=== PATIENT | male | born 1935 | race Caucasian/White ===

== ENCOUNTER 2016-05-07 18:04 | Observation (INO) ==
[2016-05-07] MEDS ORDERED: *HR* OxyCODONE/APAP 5/325 TABLET PO ONE (18:22)
[2016-05-07] MEDS ORDERED: Ondansetron ODT 4 MG TAB.RAPDIS SL ONE (18:22)
--- NOTE | 2016-05-07 18:39 | Emergency Department Note ---
Disposition Clinical Impression: Intractable pain, HX: anticoagulation Rectus sheath hematoma Qualifiers: Encounter type: initial encounter Qualified Code(s): S30.1XXA - Contusion of abdominal wall, initial encounter Anemia Qualifiers: Anemia type: unspecified type Qualified Code(s): D64.9 - Anemia, unspecified Disposition: Admitted As Inpatient Condition: Good Abdominal Pain HPI - General Chief Complaint: ED Extremity Injury, Lower Stated Complaint: Pulled something in RLQ Time Seen by Provider: 05/07/16 18:17 Source: patient, family, EMS Mode of arrival: EMS Limitations: no limitations Nursing Notes Reviewed: Yes Vital Signs Reviewed: Yes - History of Present Illness HPI Narrative: The patient reports that he awoke this morning and lifted his left leg up to twist to his right side to get out of bed. He states with this he had acute onset of pain and burning in his right lower quadrant. He had been ambulatory through the course of the day but has had increased pain prompting the family to call the squad for his evaluation. The pain is still in the right lower quadrant but he states it is now less associated with motion. He has had tenderness to right lower quadrant. He denies any feeling of swelling or fullness in the area. He denies radiation to the flank. This is similar in degree of pain to her previous kidney stone but he believes the pain is different. He denies nausea, vomiting, diarrhea or urinary troubles. He denies weakness or dizziness, fevers or chills. He denies radiation of pain down the leg or lower extremity numbness, tingling or weakness. He denies any midline back pain. He has not had any recent change in activity, strain, fall or other injury. He has scars in his upper abdomen associated with his previous coronary artery bypass graft. He states he has not had surgery in the past for appendix or gallbladder. He states he has had a previous hernia surgery. Pt Subjective Complaint: abdominal pain Onset (ago): hour(s) (12) Consistency: constant, Worsening Location: RLQ Pain Severity: moderate, severe Quality: aching, sharp, burning Radiation: none Migration to: no migration Improves with: rest Worsens with: movement Associated symptoms: Denies: nausea, vomiting, diarrhea, fever, chills, constipation, dysuria, hematemesis, hematochezia, melena, hematuria, anorexia, syncope - Related Data Home Medications Medication Instructions Recorded Confirmed Amlodipine 5 mg PO DAILY 07/27/15 11/11/15 Atorvastatin 80 mg PO HS 07/27/15 11/11/15 Eliquis 5 mg PO BID 07/27/15 11/11/15 Gabapentin 600 mg PO TID 07/27/15 11/11/15 Lisinopril 20 mg PO BID 07/27/15 11/11/15 Metoprolol 25 mg PO QPM 07/27/15 11/11/15 Pantoprazole Sodium 40 mg PO DAILY 07/27/15 11/11/15 Ropinirole HCl 2 mg PO HS 07/27/15 11/11/15 Calcium Carbonate [Calcium] 800 mg PO DAILY 11/11/15 11/11/15 Cholecalciferol (D-3) [Vitamin D] 2,000 unit PO DAILY 11/11/15 11/11/15 Clopidogrel [Plavix] 75 mg PO DAILY 11/11/15 11/11/15 Levothyroxine [Synthroid] 150 mcg PO DAILY 11/11/15 11/11/15 Magnesium 500 mg PO BID 11/11/15 11/11/15 Multivitamin [One Daily Essential] 1 each PO DAILY 11/11/15 11/11/15 Potassium Chloride [Klor-Con 10 meq PO DAILY 11/11/15 11/11/15 Sprinkle] Previous Rx's Medication Instructions Recorded Hydrocodone/Acetaminophen [[place] 1 tab PO Q4H PRN #20 tab 11/11/15 5-325 Tablet] Allergies Allergy/AdvReac Type Severity Reaction Status Date / Time codeine AdvReac Anxiety Verified 05/07/16 18:32 All systems ED: reviewed and negative except as stated. Abdominal Pain PMH - Past Medical History Medical history: Reports: arthritis, atrial fibrillation, coronary artery disease, hypertension, myocardial infarction Male Surgical History: Reports: coronary bypass (CABG), herniorrhaphy Psychiatric history: Reports: no psych history - Social History Smoking status: Never smoker Alcohol use: Reports: none Drug use: Reports: none Physical Exam - General Limitations: no limitations General appearance: alert, in distress - Head Head exam: atraumatic, normocephalic, normal inspection - Eye Eye exam: Present: normal appearance, PERRL, EOMI. Absent: scleral icterus, conjunctival injection - ENT ENT exam: normal exam, normal oropharynx, mucous membranes moist - Neck Neck exam: Present: normal inspection, full ROM, trachea midline - Chest Chest inspection: Present: normal inspection, symmetric chest wall rise - Respiratory Respiratory exam: Present: normal lung sounds bilaterally. Absent: respiratory distress, wheezes, prolonged expiratory phase - Cardiovascular Cardiovascular exam: Present: regular rate, normal rhythm, normal heart sounds - Abdominal Exam Abdominal exam: Present: soft, normal bowel sounds. Absent: distention, guarding, rebound, rigidity Abdominal tenderness: Present: RUQ, moderate - Extremities Exam Extremities exam: Present: normal inspection, full ROM, normal capillary refill. Absent: tenderness, pedal edema, calf tenderness - Expanded Lower Extremity Exam Neurovascular/Tendon exam: Present: normal capillary refill. Absent: motor deficit, sensory deficit, tendon deficit Gait: not tested/not observed - Back Exam Back exam: Present: normal inspection, full ROM. Absent: tenderness, vertebral tenderness - Neurological Exam Neurological exam: Present: alert, oriented X3 - Psychiatric Psychiatric exam: Present: normal affect, normal mood - Skin Skin exam: Present: warm, dry, intact, normal color. Absent: diaphoresis, pallor Course Course Narrative: 1924: Care has been discussed with the family and then with Dr. Goldman. Given the patient's persistent pain and likely expanding hematoma further motion or exertion, he will be placed on observation status on bedrest with pain control. Verbal orders have been obtained for his observation and we have contacted [facility] bed Management for bed placement. Vital Signs Temperature 97 F L 05/07/16 18:14 Pulse Rate 77 05/07/16 18:14 Respiratory Rate 18 05/07/16 18:14 Blood Pressure 141/74 05/07/16 18:14 O2 Sat by Pulse Oximetry 100 05/07/16 18:14 Temperature 97 F L 05/07/16 20:30 Pulse Rate 72 05/07/16 20:30 Respiratory Rate 18 05/07/16 20:30 Blood Pressure 93/58 05/07/16 20:30 O2 Sat by Pulse Oximetry 98 05/07/16 20:30 Oxygen Delivery Oxygen Delivery Room Air Abdominal Pain - Differential Diagnosis Differential Diagnosis: Likely: abdominal pain non-specific, acute appendicitis , diverticulitis, other (Hernia, muscle strain) - Medical Records Medical records reviewed: Yes I reviewed the patient's medical records. - Lab Data Lab results reviewed: Yes I reviewed the patient's lab results. Result diagrams: 05/07/16 18:46 05/07/16 18:46 Lab Results 05/07/16 05/07/16 05/07/16 Range/Units 18:46 18:46 18:46 WBC 7.4 (4.3-11.1) K/mcL RBC 3.86 L (4.19-5.50) M/mcL Hgb 8.7 L (12.9-16.9) g/dL Hct 29.4 L (37.5-50.1) % MCV 76.2 L (83.0-100.0) fL MCH 22.5 L (28.0-33.3) pg MCHC 29.6 L (31.6-35.5) g/dL RDW 16.4 H (11.5-14.5) % Plt Count 244 (140-400) K/mcL MPV 9.7 (9.4-12.4) fL Immature Gran % 0.5 (0-4) % Seg Neutrophils % 76.7 % Lymphocytes % 11.9 % Monocytes % 8.5 % Eosinophils % 1.9 % Basophils % 0.5 % Neutrophils # 5.7 (1.6-8.9) K/mcL Lymphocytes # 0.9 (0.6-4.6) K/mcL Monocytes # 0.6 (0.0-1.3) K/mcL Eosinophils # 0.1 (0.0-0.6) K/mcL Basophils # 0.0 (0.0-0.2) K/mcL PT 22.6 H (9.4-12.1) Seconds INR 2.1 APTT 37.8 H (26.0-36.0) Seconds Sodium 138 (136-145) mEq/L Potassium 4.5 (3.5-4.5) mEq/L Chloride 101 (98-109) mEq/L Carbon Dioxide 25 (19-29) mEq/L BUN 18 (8-26) mg/dL Creatinine 0.97 (0.72-1.25) mg/dL Est GFR ( Amer) > 60 (> 60) Est GFR (Non-Af Amer) > 60 (> 60) BUN/Creatinine Ratio 19 (6-26) Glucose 130 H (70-99) mg/dL Calculated Osmolality 290 (280-300) Calcium 9.2 (8.6-10.8) mg/dL - Radiology Data Radiology results reviewed: Yes I reviewed the patient's radiology results. The chest performed of the abdomen and pelvis without IV or oral contrast. This is not demonstrated abnormality to the bases of the lungs. has normal liver, spleen and pancreas. The bowels without inflammatory change, obstruction or perforation. The aorta appears normal. There is no evidence for hernia. Patient does have what appears to be a right rectus muscle hematoma present. No other acute abnormality is seen. This is on my interpretation. Impressions Abdomen/Pelvis CT 05/07/16 18:17 IMPRESSION: 1. Acute intramuscular hematoma within the right rectus abdominus muscle. 2. Trace free fluid in the pelvic cavity, likely reactive. 3. Small hiatal hernia. 4. Small fat containing ventral midline abdominal wall and bilateral inguinal hernias. No evident bowel involvement. 5. Small hiatal hernia. 6. Sigmoid diverticulosis. 7. Bilateral nonobstructing nephrolithiasis. D/ / Mayank Carroll MD / Mayank Carroll MD Interpreting Provider: Mayank Carroll MD
[2016-05-07 18:54] LABS: Basophils % 0.5 %; Eosinophils # 0.1 K/mcL (0.0-0.6); Eosinophils % 1.9 %; Hematocrit 29.4 % (37.5-50.1); Hemoglobin 8.7 g/dL (12.9-16.9); Immature Granulocytes % 0.5 % (0-4); Lymphocytes # 0.9 K/mcL (0.6-4.6); Lymphocytes % 11.9 %; Mean Corpuscular HGB Conc 29.6 g/dL (31.6-35.5); Mean Corpuscular Hemoglobin 22.5 pg (28.0-33.3); Mean Corpuscular Volume 76.2 fL (83.0-100.0); Mean Platelet Volume 9.7 fL (9.4-12.4); Monocytes # 0.6 K/mcL (0.0-1.3); Monocytes % 8.5 %; Neutrophils # 5.7 K/mcL (1.6-8.9); Platelet Count 244 K/mcL (140-400); Red Blood Count 3.86 M/mcL (4.19-5.50); Red Cell Distribution Width 16.4 % (11.5-14.5); Segmented Neutrophils % 76.7 %
[2016-05-07 19:07] LABS: BUN/Creatinine Ratio 19 (6-26); Blood Urea Nitrogen 18 mg/dL (8-26); Calcium 9.2 mg/dL (8.6-10.8); Carbon Dioxide 25 mEq/L (19-29); Chloride 101 mEq/L (98-109); Glucose 130 mg/dL (70-99); Osmolality,Calculated 290 (280-300); Potassium 4.5 mEq/L (3.5-4.5); Sodium 138 mEq/L (136-145); eGFR For African Americans > 60 (> 60); eGFR For Non-African Americans > 60 (> 60)
[2016-05-07 19:15] LABS: INR 2.1; Prothrombin Time 22.6 Seconds (9.4-12.1)
[2016-05-07 19:18] LABS: Activated Partial Thrombo Time 37.8 Seconds (26.0-36.0)
[2016-05-07] MEDS ORDERED: *HR* HYDROmorphone (PF) 1 MG/ML SYRINGE IVP ONE (19:32)
[2016-05-07] MEDS ORDERED: Ondansetron 4 MG/2 ML VIAL IVP PRN (20:31)
[2016-05-07] MEDS ORDERED: MOM Conc 10 ML UD.LIQ PO PRN (20:31)
[2016-05-07] MEDS ORDERED: Naloxone 0.4 MG/ML INJ IVP PRN (20:31)
[2016-05-07] MEDS ORDERED: *HR* OxyCODONE Immed Rel 5 MG TABLET PO PRN (20:31)
[2016-05-08] MEDS: *HR* HYDROmorphone (PF) 1 MG/ML SYRINGE IVP PRN ×5 (02:37→19:32)
[2016-05-08 04:53] LABS: Basophils % 0.7 %; Eosinophils # 0.2 K/mcL (0.0-0.6); Eosinophils % 3.6 %; Hematocrit 27.5 % (37.5-50.1); Immature Granulocytes % 0.7 % (0-4); Lymphocytes % 18.5 %; Mean Corpuscular HGB Conc 29.1 g/dL (31.6-35.5); Mean Corpuscular Hemoglobin 22.4 pg (28.0-33.3); Mean Platelet Volume 9.5 fL (9.4-12.4); Monocytes # 0.6 K/mcL (0.0-1.3); Monocytes % 10.9 %; Neutrophils # 3.7 K/mcL (1.6-8.9); Platelet Count 225 K/mcL (140-400); Red Blood Count 3.57 M/mcL (4.19-5.50); Red Cell Distribution Width 16.5 % (11.5-14.5); Segmented Neutrophils % 65.6 %
[2016-05-08 05:50] LABS: Bilirubin,Urine Negative (Negative); Blood,Urine Negative (Negative); Clarity,Urine Clear (Clear); Color,Urine Yellow (Yellow); Glucose,Urine (UA) Normal (Normal); Ketones,Urine Negative (Negative); Leukocyte Esterase,Urine Negative (Negative); Nitrite,Urine Negative (Negative); Protein,Urine Trace mg/dL (Neg-Trace); Specific Gravity,Urine 1.025 (1.010-1.025); Urobilinogen,Urine Normal (Normal)
--- NOTE | 2016-05-08 13:49 | Internal Med History&Physical ---
Date of Encounter: 05/08/16 Time of Encounter: 12:15 Assessment and Plan (1) Rectus sheath hematoma Current visit: Yes Status: Acute He has been started on scheduled analgesics. His Plavix and Eliquis will be held for now. Physical therapy and occupational therapy evaluations will be done Qualifiers: Encounter type: initial encounter Qualified Code(s): S30.1XXA - Contusion of abdominal wall, initial encounter (2) Atrial fibrillation Current visit: Yes Status: Chronic Will hold OAC and Plavix for 2 days Qualifiers: Atrial fibrillation type: chronic Qualified Code(s): I48.2 - Chronic atrial fibrillation (3) Anemia Current visit: Yes Status: Chronic We will order anemia testing in a.m. Hold Plavix and OAC as per above. Qualifiers: Anemia type: unspecified type Qualified Code(s): D64.9 - Anemia, unspecified Internal Medicine - H&P: HPI Chief complaint: Abdominal pain Admitted From: Home Plans for Post Hospital Care: Home History of present illness: Mr. 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 He took Tylenol with slight relief. He slept a few more hours but upon arising again noticed worsening pain. He came to emergency room where CT showed a large right rectus muscle hematoma. He was admitted to [facility] floor for ongoing care needs. He has been on Eliquis since 2014 and Plavix since 1991 for cardiovascular disease. He denies previous complications of bleeding from the combination of medications. Past Med Surg Social Fam HX - Past Medical History Medical history: arthritis, atrial fibrillation, cancer, coronary artery disease , hypertension, myocardial infarction Psychiatric history: no psych history - Past Surgical History Surgical History: coronary bypass (CABG) - Social History Smoking Status: Never smoker Smokeless Tobacco Status: No Alcohol use: none Drug use: none Internal Medicine - H&P: Meds Amlodipine 5 mg PO DAILY 07/27/15 [History] Atorvastatin 80 mg PO HS 07/27/15 [History] Eliquis 5 mg PO BID 07/27/15 [History] Gabapentin 600 mg PO TID 07/27/15 [History] Lisinopril 20 mg PO BID 07/27/15 [History] Metoprolol 25 mg PO QPM 07/27/15 [History] Pantoprazole Sodium 40 mg PO DAILY 07/27/15 [History] Ropinirole HCl 2 mg PO HS 07/27/15 [History] Calcium Carbonate [Calcium] 800 mg PO DAILY 11/11/15 [History] Cholecalciferol (D-3) [Vitamin D] 2,000 unit PO DAILY 11/11/15 [History] Clopidogrel [Plavix] 75 mg PO DAILY 11/11/15 [History] Hydrocodone/Acetaminophen [[place] 5-325 Tablet] 1 tab PO Q4H PRN #20 tab [Rx] Levothyroxine [Synthroid] 150 mcg PO DAILY 11/11/15 [History] Magnesium 500 mg PO BID 11/11/15 [History] Multivitamin [One Daily Essential] 1 each PO DAILY 11/11/15 [History] Potassium Chloride [Klor-Con Sprinkle] 10 meq PO DAILY 11/11/15 [History] Allergies codeine Adverse Reaction (Verified 05/07/16 18:32) Anxiety All Systems PM: A 10-system review of systems was performed and is negative for pertinent findings except as documented above in the HPI. 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 He had a heart cath approximately 2006 and a nonexercise stress test in 2014 which were unremarkable. He denies known heart failure DVT or pulmonary embolus. He has chronic atrial fibrillation and has been on Eliquis for approximately 2 years. Respiratory: He is a lifelong nonsmoker and has no known chronic lung disease GI: He has GERD. Reports colonoscopy approximately 10 years ago was negative. He denies disorders of his liver gallbladder or exocrine pancreas : He was diagnosed with prostate cancer in 2009 was treated with XRT and hormone intervention. He is believed cancer free at this time. He still has occasional urinary hesitancy. Denies other known kidney or bladder disorders Neurologic: He has neuropathic pain in his feet. He is uncertain if he has RLS. He denies large distribution strokes or seizures. Endocrine: He has history of hyperlipidemia and hypothyroidism but denies diabetes Hematology/oncology: He has history of prostate cancer as per above. He has been told he is anemic. He denies other blood disorders or malignancies Psychiatric: He has occasional feelings of anxiety but denies depression or other mental health issues - Constitutional Vitals: Temp Pulse Resp BP Pulse Ox 98.5 F 74 16 94/63 99 05/08/16 11:00 05/08/16 11:00 05/08/16 11:00 05/08/16 11:00 05/08/16 11:00 Exam: General: He is well-developed well-nourished male sitting on the side of the bed and appears in no severe distress at present time. HEENT: Head is atraumatic normocephalic. Eyes: EOMI. There is no scleral icterus. Mouth: Mucosa is moist. Neck: Supple and nontender. There is no thyromegaly or adenopathy noted. Heart: Irregularly irregular with a 2/6 systolic murmur heard at the left sternal border. Lungs: No wheezes or crackles are heard. Abdomen: He has tenderness to palpation of the right mid and lower abdominal area. There is no discoloration seen of the abdominal wall to indicate hemorrhage or hematoma. No masses or guarding are noted. Extremities: He has trace pitting edema in the dorsum of the feet and lower anterior shins bilaterally. Dorsalis pedis and posterior tibial pulses are trace palpable bilaterally. Neurologic: Mental status: He is talkative and a good historian. Cranial nerves : Smile is symmetric. Forehead wrinkles bilaterally. Tongue protrudes midline. EOMI. Motor: There is no pronator drift. Cerebellar: Finger to nose is intact bilaterally. Skin: Warm and dry Internal Med - H&P Results - Labs CBC & Chem 7: 05/08/16 04:35 05/07/16 18:46 Labs: Short CBC 05/08/16 Range/Units 04:35 WBC 5.6 (4.3-11.1) K/mcL Hgb 8.0 L (12.9-16.9) g/dL Hct 27.5 L (37.5-50.1) % Plt Count 225 (140-400) K/mcL Neutrophils # 3.7 (1.6-8.9) K/mcL - VTE Documentation of Mechanical Device: Graduated compression elastic hosiery
[2016-05-08] MEDS: Acetaminophen 325 MG TABLET PO SCH ×2 (13:55→17:41)
[2016-05-08] MEDS: *HR* OxyCODONE Immed Rel 5 MG TABLET PO PRN (17:45)
[2016-05-09] MEDS: *HR* HYDROmorphone (PF) 1 MG/ML SYRINGE IVP PRN (00:15)
[2016-05-09] MEDS: Acetaminophen 325 MG TABLET PO SCH ×2 (00:16→05:47)
[2016-05-09] MEDS: *HR* OxyCODONE Immed Rel 5 MG TABLET PO PRN ×3 (00:16→10:34)
[2016-05-09 06:18] LABS: Basophils # 0.1 K/mcL (0.0-0.2); Basophils % 0.8 %; Eosinophils # 0.1 K/mcL (0.0-0.6); Eosinophils % 2.2 %; Hematocrit 28.4 % (37.5-50.1); Hemoglobin 8.4 g/dL (12.9-16.9); Immature Granulocytes % 0.8 % (0-4); Lymphocytes # 0.9 K/mcL (0.6-4.6); Lymphocytes % 14.4 %; Mean Corpuscular HGB Conc 29.6 g/dL (31.6-35.5); Mean Corpuscular Hemoglobin 22.5 pg (28.0-33.3); Mean Corpuscular Volume 76.1 fL (83.0-100.0); Mean Platelet Volume 9.3 fL (9.4-12.4); Monocytes # 0.8 K/mcL (0.0-1.3); Monocytes % 11.7 %; Neutrophils # 4.5 K/mcL (1.6-8.9); Platelet Count 252 K/mcL (140-400); Red Blood Count 3.73 M/mcL (4.19-5.50); Red Cell Distribution Width 16.4 % (11.5-14.5); Segmented Neutrophils % 70.1 %
[2016-05-09 07:52] VITALS: BP 121/72
[2016-05-09 09:31] LABS: % Iron Saturation 4 % (20-55); Iron 21 mcg/dL (65-175); Transferrin 379 mg/dL (174-364)
[2016-05-09 09:53] LABS: Ferritin 41 ng/ml (22-275)
[2016-05-09 10:06] LABS: Folate 16.5 ng/mL (7.0-31.4)
--- NOTE | 2016-05-09 10:40 | Discharge Summary ---
Date of Encounter: 05/09/16 Time of Encounter: 10:20 - Discharge Diagnosis (1) Rectus sheath hematoma Priority: Primary Status: Acute Qualifiers: Encounter type: initial encounter Qualified Code(s): S30.1XXA - Contusion of abdominal wall, initial encounter (2) Atrial fibrillation Priority: Secondary Status: Chronic Qualifiers: Atrial fibrillation type: chronic Qualified Code(s): I48.2 - Chronic atrial fibrillation (3) Anemia Priority: Secondary Status: Chronic Qualifiers: Anemia type: iron deficiency Iron deficiency anemia type: unspecified iron deficiency Qualified Code(s): D50.9 - Iron deficiency anemia, unspecified - Discharge Medications Prescriptions: Ascorbic Acid [Vitamin C] 500 mg PO DAILY #30 tablet.er Ferrous Sulfate 325 mg PO DAILY #30 tablet. OxyCODONE Immed Rel [Roxicodone 5 MG] 5 mg PO Q4H PRN #12 tablet PRN Reason: Moderate Pain (4-6) Home Medications: Amlodipine 5 mg PO DAILY 07/27/15 [History] Atorvastatin 80 mg PO HS 07/27/15 [History] Gabapentin 600 mg PO TID 07/27/15 [History] Lisinopril 20 mg PO BID 07/27/15 [History] Metoprolol 25 mg PO QPM 07/27/15 [History] Pantoprazole Sodium 40 mg PO DAILY 07/27/15 [History] Ropinirole HCl 2 mg PO HS 07/27/15 [History] Calcium Carbonate [Calcium] 800 mg PO DAILY 11/11/15 [History] Cholecalciferol (D-3) [Vitamin D] 2,000 unit PO DAILY 11/11/15 [History] Hydrocodone/Acetaminophen [[place] 5-325 Tablet] 1 tab PO Q4H PRN #20 tab [Rx] Levothyroxine [Synthroid] 150 mcg PO DAILY 11/11/15 [History] Magnesium 500 mg PO BID 11/11/15 [History] Multivitamin [One Daily Essential] 1 each PO DAILY 11/11/15 [History] Potassium Chloride [Klor-Con Sprinkle] 10 meq PO DAILY 11/11/15 [History] Ascorbic Acid [Vitamin C] 500 mg PO DAILY #30 tablet.er 05/09/16 [Rx] Clopidogrel [Plavix] 75 mg PO DAILY #0 03/23/17 [Rx] Eliquis 5 mg PO BID #0 05/09/16 [Rx] Ferrous Sulfate 325 mg PO DAILY #30 tablet. 05/09/16 [Rx] OxyCODONE Immed Rel [Roxicodone 5 MG] 5 mg PO Q4H PRN #12 tablet 05/09/16 [Rx] Allergies/Adverse Reactions: Allergies codeine Adverse Reaction (Verified 05/07/16 18:32) Anxiety Date of admission: 05/07/16 19:46 Primary care physician: Huan Tadeo MD Consults: 05/08/16 12:41 Consult to Occupational Therapy [CONS] Routine Comment: Evaluate, develop and implement POC Consult to Physical Therapy [CONS] Routine Comment: Evaluate, develop and implement POC - Patient Status Disposition: Home, Self-Care Condition: Good Overall status at discharge: patient is progressing back to baseline - Discharge Instructions Follow Up With: Huan Tadeo MD [Primary Care Provider] - 1 week - Diet and Activity Activity: resume usual activities as tolerated Diet: advance to your usual diet Hospital course: Mr. 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 He took Tylenol with slight relief. He slept a few more hours but upon arising again noticed worsening pain. He came to emergency room where CT showed a large right rectus muscle hematoma. He was admitted to [facility] floor for ongoing care needs. Initial orders were written by the emergency room physician. I saw him on May 08 and performed a history and physical. Plavix and Eliquis were held. He was started on scheduled Tylenol every 6 hours and given prn analgesics also. Hemoglobin was stable the following day at 8.4. Anemia testing showed serum iron 21, transferrin saturation 4%, transferrin 379 (high), ferritin 41, B12 662, and folate 16.5. He will be started on ferrous sulfate and vitamin C at discharge. Dr. Tadeo can order additional workup for possible chronic blood loss. When I saw him on May 09 he felt significantly improved and stable for discharge home which I felt was reasonable. He will follow with Dr. Huan Tadeo within 1 week. He will restart Plavix and Ellquis on May 11. - Time Spent with Patient Total time spent providing and/or coordinating discharge services: - Constitutional Vitals: Temp Pulse Resp BP Pulse Ox 97.8 F 88 16 121/72 96 05/09/16 07:49 05/09/16 07:49 05/09/16 07:49 05/09/16 07:49 05/09/16 07:49 - VTE Documentation of Mechanical Device: Graduated compression elastic hosiery
== END 2016-05-09 11:40 | disposition home or self-care (01) ==
LOC: INPPIK 18:04 → EMEROOPIK 18:04 → INPPIK 20:27
PROVIDERS: ADMIT Internal Medicine; ATTEND Internal Medicine